=== PATIENT | female | born 1935 | race African-American/Black ===

== ENCOUNTER 2016-02-27 01:55 | Inpatient (IN) | payer MEDICARE, MEDICAID ==
[2016-02-27] MEDS ORDERED: Albuterol/Ipratropium Neb 3 ML NEB NEB ONE (01:59)
--- NOTE | 2016-02-27 02:07 | EDPRACDOC ---
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 THE NURSING STAFF THEY FOUND THE PATIENT UNCONSCIOUS WITH OXYGEN SATS IN THE 50'S. PT ALWAYS WEARS OXYGEN 1-2 LITERS NC. PT WAS BAGGED AND BECAME CONSCIOUS. UPON ARRIVAL PT STATES SHE SHE IS HAVING SUBSTERNAL CHEST PAIN. PT WITH EXTENSIVE MEDICAL HISTORY Chest Pain Location: Reports: Substernal Pain Radiation: Reports: None Symptoms Occur: Reports: Suddenly Cardiac Risk Factors: Reports: Hyperlipidemia, Hypertension, Diabetes PE Risk Factors: Reports: Immobilization Medications within 24 Hours: Reports: Aspirin Prehospital Care: Reports: O2, IV, EKG, Monitor Pain Came On: Reports: Suddenly Pain Status: Present Now Pain Description: Reports: Sharp, Stabbing Pain Severity: Moderate Pain Worsens With: Reports: Other (SWALLOWING) Pain Improves With: Reports: Nothing Associated Signs and Symptoms: Reports: SOB <Irais Goodson - Last Filed: 02/27/16 03:17> <Scottie Miller - Last Filed: 03/02/16 09:06> - General Information Chief Complaint: Chest Pain Stated Complaint: UNCONSCIOUS Time Seen by Provider: 02/27/16 01:56 Home Medications: Home Medications Acetaminophen [Tylenol 8 Hour/Tylenol Arthritis] 650 mg PO Q6 PRN 01/31/12 Budesonide [Pulmicort] 0.5 mg NEB BID 01/31/12 Docusate Sodium [Colace] 100 mg PO BID 01/31/12 Ergocalciferol (Vitamin D2) [Vitamin D2] 50,000 unit PO .MONTHLY ON THE 01/01 Isosorbide Mononitrate [Imdur] 60 mg PO DAILY 01/31/12 Multivitamins with Iron [Daily Multivitamin with Iron] 1 tab PO DAILY 01/31/12 Polyethylene Glycol 3350 [Miralax] 17 gm PO DAILY 01/31/12 Pravastatin Sodium 20 mg PO HS 01/31/12 Allopurinol 150 mg PO DAILY 06/20/12 Ipratropium/Albuterol Sulfate [Duoneb 0.5 mg-3 mg/3 ml Soln] 3 ml NEB Q4H PRN Omeprazole [Prilosec] 20 mg PO BID 06/20/12 Benzonatate [Tessalon] 100 mg PO TID PRN 06/26/12 Insulin Glargine,Hum.rec.anlog [Lantus] 15 units SQ QAM 06/26/12 Lorazepam [Ativan] 0.5 mg PO BID 06/26/12 Calcium Carbonate [Tums] 1 tab PO TID PRN 12/11/12 Potassium Chloride [Klor-Con 10] 10 meq PO DAILY 01/24/14 Primidone [Mysoline] 100 mg PO HS 01/24/14 Ropinirole HCl 0.5 mg PO HS 01/24/14 Sennosides [Senokot] 2 tab PO HS 01/24/14 Sucralfate [Carafate] 1 gm PO QID 01/24/14 Tramadol HCl [Ultram] 50 mg PO Q12H PRN 01/24/14 Albuterol Sulfate [Ventolin] 2.5 mg NEB Q6H PRN 07/06/14 Fluticasone Propionate [Flonase] 2 spray GILA HS 07/06/14 Gabapentin [Neurontin] 300 mg PO BID 07/06/14 HydrALAZINE (Cardiovascular) [Apresoline] 25 mg PO QID 07/06/14 Insulin Glargine,Hum.rec.anlog [Lantus] 10 unit SQ HS 07/06/14 Magnesium Hydroxide/Al Hydrox [Mylanta Liquid] 30 ml PO Q6H PRN 07/06/14 Nitroglycerin [Nitrostat] 0.4 mg SL [id number] PRN 07/06/14 Psyllium Seed [Metamucil] 1 tbsp PO QAM 07/06/14 Aspirin (Enteric Coated) [Ecotrin] 81 mg PO DAILY 11/21/15 Bisacodyl [Dulcolax] 10 mg IA DAILY PRN 11/21/15 Carvedilol [Coreg] 6.25 mg PO BID 11/21/15 Furosemide [Lasix] 80 mg PO BID 11/21/15 Hydrocodone Bit/Acetaminophen [[place] 7.5-325 Tablet] 1 tab PO TID 11/21/15 Levothyroxine [Synthroid, Levoxyl] 25 mcg PO DAILY 11/21/15 Nystatin 1 applic TOP Q12H PRN 11/21/15 Levofloxacin [Levaquin] 750 mg PO 02/27/16 Allergies/Adverse Reactions: Allergies Allergy/AdvReac Type Severity Reaction Status Date / Time codeine [Codeine] Allergy Unknown Verified 02/27/16 02:29 heparin,beef [Heparin,Beef] Allergy Unknown Verified 02/27/16 02:29 Penicillins Allergy Unknown Verified 02/27/16 02:29 Sulfa (Sulfonamide Allergy Unknown Verified 02/27/16 02:29 Antibiotics) [Sulfa(Sulfonamide Antibiotics)] Tetracyclines Allergy Unknown Verified 02/27/16 02:29 torsemide [From Demadex] Allergy Unknown Verified 02/27/16 02:29 ED Past Medical History - History Reviewed Yes Nurses notes reviewed and agree except as marked - Patient Medical History Neurological History: Reports: Cerebrovascular Accident (>10 years ago), Dementia (MILD VASCULAR DEMENTIA) Cardiac History: Reports: Hypertension, Congestive Heart Failure (Diastolic type. Normal EF 2012), Cardiac Catheterization (2012) Respiratory History: Reports: Asthma, COPD GI/ History: Reports: Renal Failure Musculoskeletal History: Reports: Arthritis, Gout, Osteoarthritis Psychological History: Reports: Depression Systemic History: Reports: Anemia, Diabetes (Type 2). Denies: Cancer Surgical History: Reports: Hysterectomy (Total abdominal), Cardiac Catheterization (2012), Tonsillectomy/Adnoidectomy, Other (Bilateral knee arthroscopy) - Family Medical History Reports: Hypertension (Daughter), Stroke (Daughter), Cardiac Disorders (Mother) - Social Medical History Smoking Status: Never smoker <Irais Goodson - Last Filed: 02/27/16 03:17> EDM Review of Systems - Review of Systems ROS Negative Except as Marked: Yes All systems reviewed and were negative except as marked <Irais Goodson - Last Filed: 02/27/16 03:17> - Physical Exam Constitutional: Alert Oriented to: Time, Person, Place Last recorded Vital Signs: Oxygen Pulse Oxygen Saturation O2 Device Oxygen Flow Rate Fraction of Inspired Oxygen ( FIO2) - HEENT Head: Normal ( normocephalic) Eye Exam: Normal (PERRL, EOMI, Sclera white) Oropharynx: Normal (Pharynx:Moist without exudate,Gums-no swelling) Nose: No Symptoms Reported (septum midline) Neck: Normal (FROM, trachea at midline) - Respiratory/Cardiovascular Respiratory: Normal - CTA (BBS clear to auscultation without adventitious sounds ) Cardiovascular: Normal (RRR without murmur, gallop or rub) - GI Auscultation: Normal (NABS) Palpation: Normal (Soft,No rebound or guarding, non distended) Tenderness: Non tender Erickson's Sign: Negative Rectal Exam: Deferred - Musculoskeletal Back: Normal (Non-Tender) Extremities: Normal (Normal tone, Pulses 2+ No cyanosis or edema, FROM) - Integumentary Skin: Normal, Warm, Dry Lymphatics: Normal (no adenopathy) - Neurologic Memory Impaired: Normal Motor Function: Normal (Normal tone, Pulses 2+ No cyanosis or edema, FROM) Cranial Nerve: Normal (CN II-X11 intact sensation, strength 5/5) Cerebellar: Normal Mood Description: Normal Perception: Normal <Irais Goodson - Last Filed: 02/27/16 03:17> - Physical Exam Last recorded Vital Signs: Last Vital Signs Temp 97.7 F 02/27/16 02:00 Pulse 58 L 02/27/16 02:00 Resp 20 02/27/16 02:04 BP 167/74 02/27/16 02:00 Pulse Ox 89 L 02/27/16 02:00 Oxygen Pulse Oxygen Saturation 89 O2 Device Nasal Cannula Oxygen Flow Rate 3 Fraction of Inspired Oxygen ( FIO2) <Scottie Miller - Last Filed: 03/02/16 09:06> ED Chest Pain Exam - Respiratory/Cardiovascular Respiratory: Tachypnea Cardiovascular/Chest: Bradycardia Radial Pulse: Normal Femoral Pulse: Other Pedal Pulse: Other Carotid Arteries: Normal Edema: 3+ (PITTING) Chest Palpation: Tender <Irais Goodson - Last Filed: 02/27/16 03:17> - Differential Diagnosis Angina, CHF, Pneumonia - Action Patient received Aspirin within last 24 hours?: Yes ASA given in the ED: No Patient received Beta Wagner within last 24hrs: No - Results All Results Reviewed and Normal except as Highlighted below: Yes 02/27/16 02:05 02/27/16 02:05 - EKG EKG #1 EKG Time: 02:00 -: Yes EKG interpreted by me Rate: bpm: 57 Mondamin: RAD Rhythm: NSR Block: RBBB Hypertrophy: None ST: Old, Ant, Infarct, Nonsp Comments: T WAVE INVERSION - NEW FROM JUNE 2014 <Irais Goodson W - Last Filed: 02/27/16 03:17> - Re-evaluation Re-evaluation 1 Re-evaluation Time: 03:26 HOSPITALIST CONCERNED THAT PATIENT MAY SOON NEED DIALYSIS AND RECOMMENDS TRANSFER TO CENTER CAPABLE OF THIS. Re-evaluation 2 Re-evaluation Time: 04:[address] RINCON, HOSPITALIST [facility], SHE REFUSES TRANSFER SHE DOES NOT BELIEVE THE PATIENT WILL NEED DIALYSIS. SHE TOLD ME TO TALK TO RENAL AT THEIR FACILITY AND IF THEY THINK SHE MAY NEED IT THEN TO CALL HER BACK. Re-evaluation 3 Re-evaluation Time: 04:39 SPOKE WITH NEPHROLOGY AT [facility] WHO AGREES THAT THE PATIENT DOES NOT NEED DIALYSIS AND RECOMMENDS STABILIZATION AT OUR FACILITY. - Results 03/01/16 08:31 03/01/16 08:31 WBC 3.7 xk/uL (3.8-10.8) L 02/27/16 02:05 RBC 3.86 xM/uL (4.20-5.40) L 02/27/16 02:05 Hgb 9.5 g/dL (12.0-16.0) L 02/27/16 02:05 Hct 31.6 % (36-47) L 02/27/16 02:05 MCV 82 fL (81-99) 02/27/16 02:05 MCH 24.7 pg (27-32) L 02/27/16 02:05 MCHC 30.1 g/dl (33-36) L 02/27/16 02:05 RDW 20.1 % (11.5-14.5) H 02/27/16 02:05 Plt Count 40 xk/uL (130-400) L* 02/27/16 02:05 MPV 9.1 fL (7.4-10.4) 02/27/16 02:05 Neut % (Auto) 75.7 % (45-76) 02/27/16 02:05 Lymph % (Auto) 14.6 % (17-44) L 02/27/16 02:05 [place] % (Auto) 7.1 % (3-10) 02/27/16 02:05 Eos % (Auto) 1.8 % (0-5) 02/27/16 02:05 Baso % (Auto) 0.8 % (0-2) 02/27/16 02:05 Absolute Neuts (auto) 2.78 xk/uL (1.7-8.2) 02/27/16 02:05 Absolute Lymphs (auto) 0.52 xk/uL (0.65-4.75) L 02/27/16 02:05 Platelet Estimate Large plts present (NORMAL) 02/27/16 02:05 RBC Morphology Norm 02/27/16 02:05 PT 11.9 SEC (9.2-11.2) H 02/27/16 02:05 INR 1.2 02/27/16 02:05 APTT 22.2 SEC (22-35) 02/27/16 02:05 Puncture Site Right radial 02/27/16 02:10 pH 7.320 pH UNITS (7.35-7.45) L 02/27/16 02:10 pCO2 41.0 mmHg (35-45) 02/27/16 02:10 pO2 49.0 mmHg (80-100) L* 02/27/16 02:10 HCO3 21.1 MMOL/L (22-26) L 02/27/16 02:10 Total CO2 22.4 MMOL/L (23-27) L 02/27/16 02:10 Base Excess -4.8 (+/- 2) L 02/27/16 02:10 FiO2 % 3l nc 02/27/16 02:10 Specimen Drawn By Whitr 02/27/16 02:10 Sodium 142 mEq/L (137-146) 02/27/16 02:05 Potassium 4.8 mEq/L (3.5-5.1) 02/27/16 02:05 Chloride 109 mEq/L (98-107) H 02/27/16 02:05 Carbon Dioxide 22 mMOL/L (22-33) 02/27/16 02:05 Anion Gap 16 mEq/L (8-16) 02/27/16 02:05 BUN 97 MG/DL (7-17) H 02/27/16 02:05 Creatinine 2.20 MG/DL (0.52-1.04) H 02/27/16 02:05 Estimated GFR (MDRD) 26 mL/min (>=60) L 02/27/16 02:05 Glucose 172 MG/DL (70-99) H 02/27/16 02:05 Calculated Osmolality 307 MOs/Kg (270-290) H 02/27/16 02:05 Lactic Acid 1.7 mEq/L (0.7-2.1) 02/27/16 02:05 Calcium 7.9 MG/DL (8.4-10.2) L 02/27/16 02:05 Corrected Calcium 9.1 MG/DL (8.4-10.2) 02/27/16 02:05 Total Bilirubin 0.4 MG/DL (0.2-1.3) 02/27/16 02:05 AST 48 IU/L (14-36) H 02/27/16 02:05 ALT 58 IU/L (9-52) H 02/27/16 02:05 Alkaline Phosphatase 153 IU/L (55-165) 02/27/16 02:05 Creatine Kinase 24 IU/L (30-134) L 02/27/16 02:05 Troponin I < 0.01 ng/mL (<.04) 02/27/16 02:05 Xul-Q-Khmzsqrpopk Pept 68483 pg/mL (0-1800) H 02/27/16 02:05 Total Protein 5.9 G/DL (6.3-8.2) L 02/27/16 02:05 Albumin 2.8 G/DL (3.5-5.0) L 02/27/16 02:05 Lab Results 02/27/16 02/27/16 02/27/16 02:10 02:05 02:05 WBC 3.7 L RBC 3.86 L Hgb 9.5 L Hct 31.6 L MCV 82 MCH 24.7 L MCHC 30.1 L RDW 20.1 H Plt Count 40 L* MPV 9.1 Neut % (Auto) 75.7 Lymph % (Auto) 14.6 L [place] % (Auto) 7.1 Eos % (Auto) 1.8 Baso % (Auto) 0.8 Absolute Neuts (auto) 2.78 Absolute Lymphs (auto) 0.52 L Platelet Estimate Large plts present RBC Morphology Norm PT 11.9 H INR 1.2 APTT 22.2 Puncture Site Right radial pH 7.320 L pCO2 41.0 pO2 49.0 L* HCO3 21.1 L Total CO2 22.4 L Base Excess -4.8 L FiO2 % 3l nc Specimen Drawn By Whitr Sodium Potassium Chloride Carbon Dioxide Anion Gap BUN Creatinine Estimated GFR (MDRD) Glucose Calculated Osmolality Lactic Acid Calcium Corrected Calcium Total Bilirubin AST ALT Alkaline Phosphatase Creatine Kinase Troponin I Bwx-Z-Fgbrlrypvia Pept Total Protein Albumin 02/27/16 02/27/16 02:05 02:05 WBC RBC Hgb Hct MCV MCH MCHC RDW Plt Count MPV Neut % (Auto) Lymph % (Auto) [place] % (Auto) Eos % (Auto) Baso % (Auto) Absolute Neuts (auto) Absolute Lymphs (auto) Platelet Estimate RBC Morphology PT INR APTT Puncture Site pH pCO2 pO2 HCO3 Total CO2 Base Excess FiO2 % Specimen Drawn By Sodium 142 Potassium 4.8 Chloride 109 H Carbon Dioxide 22 Anion Gap 16 BUN 97 H Creatinine 2.20 H Estimated GFR (MDRD) 26 L Glucose 172 H Calculated Osmolality 307 H Lactic Acid 1.7 Calcium 7.9 L Corrected Calcium 9.1 Total Bilirubin 0.4 AST 48 H ALT 58 H Alkaline Phosphatase 153 Creatine Kinase 24 L Troponin I < 0.01 Yjs-D-Cpufbezryrt Pept 18182 H Total Protein 5.9 L Albumin 2.8 L Laboratory Results - last 24 hr 02/27/16 02/27/16 02/27/16 02:05 02:05 02:05 WBC 3.7 L RBC 3.86 L Hgb 9.5 L Hct 31.6 L MCV 82 MCH 24.7 L MCHC 30.1 L RDW 20.1 H Plt Count 40 L* MPV 9.1 Neut % (Auto) 75.7 Lymph % (Auto) 14.6 L [place] % (Auto) 7.1 Eos % (Auto) 1.8 Baso % (Auto) 0.8 Absolute Neuts (auto) 2.78 Absolute Lymphs (auto) 0.52 L Platelet Estimate Large plts present RBC Morphology Norm PT INR APTT Puncture Site pH pCO2 pO2 HCO3 Total CO2 Base Excess FiO2 % Specimen Drawn By Sodium 142 Potassium 4.8 Chloride 109 H Carbon Dioxide 22 Anion Gap 16 BUN 97 H Creatinine 2.20 H Estimated GFR (MDRD) 26 L Glucose 172 H Calculated Osmolality 307 H Lactic Acid 1.7 Calcium 7.9 L Corrected Calcium 9.1 Total Bilirubin 0.4 AST 48 H ALT 58 H Alkaline Phosphatase 153 Creatine Kinase 24 L Troponin I < 0.01 Dkj-S-Szcdkzgmuua Pept 07717 H Total Protein 5.9 L Albumin 2.8 L 02/27/16 02/27/16 02:05 02:10 WBC RBC Hgb Hct MCV MCH MCHC RDW Plt Count MPV Neut % (Auto) Lymph % (Auto) [place] % (Auto) Eos % (Auto) Baso % (Auto) Absolute Neuts (auto) Absolute Lymphs (auto) Platelet Estimate RBC Morphology PT 11.9 H INR 1.2 APTT 22.2 Puncture Site Right radial pH 7.320 L pCO2 41.0 pO2 49.0 L* HCO3 21.1 L Total CO2 22.4 L Base Excess -4.8 L FiO2 % 3l nc Specimen Drawn By Whitr Sodium Potassium Chloride Carbon Dioxide Anion Gap BUN Creatinine Estimated GFR (MDRD) Glucose Calculated Osmolality Lactic Acid Calcium Corrected Calcium Total Bilirubin AST ALT Alkaline Phosphatase Creatine Kinase Troponin I Ojw-X-Zwuddhwfqfz Pept Total Protein Albumin Laboratory Results 02/27/16 02:05 02/27/16 02:05 <Scottie Miller - Last Filed: 03/02/16 09:06> ED Critical Care Note - Critical Care Note Total Time (mins): 30 Comments: Due to the presence of and / or the risk of deterioration, my attendance to this patient required critical care time, including assessment/reassessment, documentation, ordering and interpreting ancillary studies, discussion with ED staff and consultants,patient and family, and excludes time spent on separately billable procedures. <Scottie Miller - Last Filed: 03/02/16 09:06> - Departure Disposition: Admit IP To This Hospital Education/Counseling Given To: Patient Education/Counseling Given Regarding: Diagnosis, Treatment, Prognosis, Follow Up Decision to Admit Time: 03:17 Decision to admit date: 02/27/16 Decision to admit: from ED - Physician Consulted Hospitalist Time Called: 03:17 Provider Called: Inga Nam Time Postal Inspector Returned Call: 03:17 <Irais Goodson - Last Filed: 02/27/16 03:17> <Scottie Miller - Last Filed: 03/02/16 09:06> - Departure Condition: Stable Final Diagnosis: Heart failure Qualifiers: Heart failure type: unspecified heart failure type Heart failure chronicity: unspecified heart failure chronicity Qualified Code(s): I50.9 - Heart failure, unspecified
[2016-02-27 02:15] LABS: ALLEN'S TEST PASS; BEb -4.8 (+/- 2); TCO2 22.4 MMOL/L (23-27)
[2016-02-27 02:16] LABS: ABG Draw Site Right Radial
[2016-02-27] MEDS: METHYLPREDNISOLONE 125 MG/2 ML VIAL IM ONE ×2 (02:16→02:26)
[2016-02-27] MEDS ORDERED: METHYLPREDNISOLONE 125 MG/2 ML VIAL IV ONE (02:17)
[2016-02-27 02:21] LABS: AUTOMATED EOSINOPHIL 1.8 % (0-5)
[2016-02-27 02:22] LABS: AUTOMATED BASOPHIL 0.8 % (0-2); AUTOMATED LYMPH 14.6 % (17-44); AUTOMATED MONOCYTE 7.1 % (3-10); AUTOMATED NEUTROPHIL 75.7 % (45-76); MPV 9.1 fL (7.4-10.4)
[2016-02-27 02:28] LABS: BLOOD UREA NITROGEN 97 MG/DL (7-17); CALC CORRECTED 9.1 MG/DL (8.4-10.2); CALCIUM 7.9 MG/DL (8.4-10.2); CALCULATED OSMOLALITY 307 MOs/Kg (270-290); CHLORIDE 109 mEq/L (98-107); GLUCOSE 172 MG/DL (70-99); SODIUM LEVEL 142 mEq/L (137-146); TOTAL PROTEIN 5.9 G/DL (6.3-8.2)
[2016-02-27 02:35] LABS: PARTIAL THROMB. TIME 22.2 SEC (22-35); PT-INR 1.2
--- NOTE | 2016-02-27 02:48 | DIRPT ---
CLINICAL DATA: Acute onset of substernal chest pain. Found unconscious, with decreased O2 saturation. Initial encounter. EXAM: PORTABLE CHEST 1 VIEW COMPARISON: Chest radiograph performed 07/11/2014 FINDINGS: The lungs are well-aerated. Vascular congestion is noted. Mildly increased interstitial markings may reflect mild interstitial edema. There is no evidence of pleural effusion or pneumothorax. The cardiomediastinal silhouette is borderline enlarged. No acute osseous abnormalities are seen. IMPRESSION: Vascular congestion and borderline cardiomegaly. Mildly increased interstitial markings may reflect mild interstitial edema. Electronically Signed By: Black Chau M.D. On: 02/27/2016 02:46
[2016-02-27] MEDS ORDERED: NITROGLYCERINE 2 % OINTMENT PACK TOP ONE (02:50)
[2016-02-27] MEDS ORDERED: FUROSEMIDE 40 MG/4 ML VIAL IV ONE (02:50)
[2016-02-27 02:53] LABS: CPK TOTAL WITH POSSIBLE MB 24 IU/L (30-134)
[2016-02-27] MEDS ORDERED: Albuterol/Ipratropium Neb 3 ML NEB NEB PRN (05:26)
[2016-02-27] MEDS ORDERED: METOCLOPRAMIDE 10 MG/2 ML VIAL IV PRN (05:26)
[2016-02-27] MEDS ORDERED: DOCUSATE-SENNA CONCENTRATE TAB PO PRN (05:26)
[2016-02-27] MEDS ORDERED: BENZONATATE 100 MG PERLES PO PRN (05:26)
[2016-02-27] MEDS ORDERED: SODIUM CHLORIDE 0.9% 3 ML FLUSH FLUSH PRN (05:26)
[2016-02-27] MEDS ORDERED: SIMETHICONE 80 MG TAB PO PRN (05:26)
[2016-02-27] MEDS ORDERED: ACETAMINOPHEN 325 MG/TAB TABLET PO PRN (05:26)
[2016-02-27] MEDS ORDERED: ONDANSETRON HCL 4 MG/2 ML VIAL IV PRN (05:26)
[2016-02-27] MEDS ORDERED: ACETAMINOPHEN 650 MG SUPP PR PRN (05:26)
[2016-02-27] MEDS ORDERED: TEMAZEPAM 15 MG CAP PO PRN (05:26)
[2016-02-27] MEDS ORDERED: NITROGLYCERINE 0.4 MG TAB SL PRN ×2 (05:31→06:21)
--- NOTE | 2016-02-27 05:46 | HISTPHYS ---
- Chief Complaint AGONAL RESPIRATIONS - History of Present Illness Karrie Real is a 80 year old Afro-[place]ir[place] woman who resides at [facility]. She was found to be unconscious today with agonal respirations. EMS was called to the scene and administered bag-valve- mask assisted respirations and transported the patient to the ED. She was more alert upon arrival to the ED, but noticeably short of breath and coughing. She admitted to feeling tired for several days and having some chest congestion which she felt was a cold. Her chest x-ray is consistent with significant pulmonary edema. She has been followed by Dr. Bray at [facility] for immune thrombocytopenic purpura, and is noted to have mildly elevated liver enzymes. She also has significant uremia with a BUN of 97 and a creatinine of 2.2. I explained to her that she has multi-system disease and that we had discussed her case with nephrology at [facility]. They felt she was not a candidate for dialysis due to her multiple co-morbidities. She has agreed to be admitted for palliative care at this time. - Medical History Cardiac History: Reports: Hypertension, Congestive Heart Failure (Diastolic type. Normal EF 2014), Cardiac Catheterization (2012) Respiratory History: Reports: Asthma, COPD, Cough GI/ History: Reports: Renal Failure, Liver Failure Musculoskeletal History: Reports: Arthritis, Gout, Osteoarthritis Systemic History: Reports: Anemia (thrombocytopenia), Diabetes (Type 2), Hypothyroidism. Denies: Cancer Neurological History: Reports: Cerebrovascular Accident (>10 years ago), Dementia (MILD VASCULAR DEMENTIA) Psychological History: Reports: Depression - Surgical History Reports: Cholecystectomy, Hysterectomy (Total abdominal), Cardiac Catheterization (2012), Tonsillectomy/Adnoidectomy, Other (Bilateral knee arthroscopy, bone marrow aspiration) - Medictions/Allergies Allergies codeine [Codeine] Allergy (Verified 02/27/16 02:29) Unknown heparin,beef [Heparin,Beef] Allergy (Verified 02/27/16 02:29) Unknown Penicillins Allergy (Verified 02/27/16 02:29) Unknown Sulfa (Sulfonamide Antibiotics) [Sulfa(Sulfonamide Antibiotics)] Allergy ( Verified 02/27/16 02:29) Unknown Tetracyclines Allergy (Verified 02/27/16 02:29) Unknown torsemide [From Demadex] Allergy (Verified 02/27/16 02:29) Unknown Current Medication List: Reviewed Home Medications Acetaminophen [Tylenol 8 Hour/Tylenol Arthritis] 650 mg PO Q6 PRN 01/31/12 Budesonide [Pulmicort] 0.5 mg NEB BID 01/31/12 Dextran 70/Hypromellose/Pf [Artificial Tears Drops (1.0%)] 1 drop OU QID Docusate Sodium [Colace] 100 mg PO BID 01/31/12 Ergocalciferol (Vitamin D2) [Vitamin D2] 50,000 unit PO .MONTHLY ON THE 01/01 Gabapentin [Neurontin] 300 mg PO BID 01/31/12 Isosorbide Mononitrate [Imdur] 60 mg PO DAILY 01/31/12 Multivitamins with Iron [Daily Multivitamin with Iron] 1 tab PO DAILY 01/31/12 Polyethylene Glycol 3350 [Miralax] 17 gm PO DAILY 01/31/12 Pravastatin Sodium 20 mg PO HS 01/31/12 Allopurinol 150 mg PO DAILY 06/20/12 Ipratropium/Albuterol Sulfate [Duoneb 0.5 mg-3 mg/3 ml Soln] 3 ml NEB Q4H PRN Omeprazole [Prilosec] 20 mg PO BID 06/20/12 Benzonatate [Tessalon] 100 mg PO TID PRN 06/26/12 Insulin Glargine,Hum.rec.anlog [Lantus] 15 units SQ QAM 06/26/12 Lorazepam [Ativan] 0.5 mg PO BID 06/26/12 Calcium Carbonate [Tums] 1 tab PO TID PRN 12/11/12 Metolazone [Zaroxolyn] 2.5 mg PO .WEEKLY ON Monday01/24/14 Potassium Chloride [Klor-Con 10] 10 meq PO DAILY 01/24/14 Primidone [Mysoline] 100 mg PO HS 01/24/14 Ropinirole HCl 0.5 mg PO HS 01/24/14 Sennosides [Senokot] 2 tab PO HS 01/24/14 Sucralfate [Carafate] 1 gm PO QID 01/24/14 Tramadol HCl [Ultram] 50 mg PO Q12H PRN 01/24/14 Albuterol Sulfate [Ventolin] 2.5 mg NEB Q6H PRN 07/06/14 Fluticasone Propionate [Flonase] 2 spray GILA HS 07/06/14 Gabapentin [Neurontin] 600 mg PO HS 07/06/14 Glycerin/Witch Jessenia Chiawuli Tak [Tucks Medicated Pads] 1 each OK DAILY PRN 07/06/14 Guaifenesin [Robitussin] 10 ml PO Q4H PRN 07/06/14 HydrALAZINE (Cardiovascular) [Apresoline] 25 mg PO QID 07/06/14 Insulin Glargine,Hum.rec.anlog [Lantus] 10 unit SQ HS 07/06/14 Magnesium Hydroxide/Al Hydrox [Mylanta Liquid] 30 ml PO Q6H PRN 07/06/14 Nitroglycerin [Nitrostat] 0.4 mg SL [id number] PRN 07/06/14 Psyllium Seed [Metamucil] 1 tbsp PO QA 07/06/14 Aspirin (Enteric Coated) [Ecotrin] 81 mg PO DAILY 11/21/15 Bisacodyl [Dulcolax] 10 mg OK DAILY PRN 11/21/15 Carvedilol [Coreg] 6.25 mg PO BID 11/21/15 Cephalexin Monohydrate [Keflex] 500 mg PO Q8H #30 cap 11/21/15 Furosemide [Lasix] 100 mg PO TID 11/21/15 Hydrocodone Bit/Acetaminophen [[place] 7.5-325 Tablet] 1 tab PO TID 11/21/15 Levothyroxine [Synthroid, Levoxyl] 25 mcg PO DAILY 11/21/15 Mineral Oil [Enema] 133 ml OK DAILY PRN 11/21/15 Nystatin 1 applic TOP Q12H PRN 11/21/15 - Family History Reports: Hypertension (Daughter), Stroke (Daughter), Cardiac Disorders (Mother) - Social History Travel Outside of [place] in the Last 3 Months?: No Lives: in Snf/SNF Smoking Status: Never smoker Social History: Denies: Alcohol Use (former), Substance Use Disorder - Review of Systems Constitutional: Fatigue, Weakness. negative: Chills, Fever Eyes: No Symptoms Reported Ears: No Symptoms Reported Nose: No Symptoms Reported Mouth: Dry Mouth, Poor Dentition Throat/Neck: No Symptoms Reported, Snoring. negative: Hoarseness, Thyroid enlargement Respiratory: Brassy Cough, Cough, Shortness of Breath Cardiovascular: Edema, Orthopnea. negative: Chest Pain, Cyanosis Gastrointestinal: Nausea, Constipation, Heartburn, Appetite Changes (decreased) . negative: Vomiting, Abdominal Pain Genitourinary: Postmenopause. negative: Frequency, Urgency to urinate Neurological: Dizziness, Gait Difficulty, Headache, Weakness, Memory Changes Musculoskeletal:: Osteoarthritis, Weakness, Joint Pain, Swelling (legs) Integumentary: No Symptoms Reported Allergic/Immunologic: No Symptoms Reported Hematologic: No Symptoms Reported Endocrine: Diabetes, Hypothyroidism Psychiatric: Depression - Physical Exam Vital Signs: Initial Vitals Temperature 97.7 F 02/27/16 02:00 Pulse Rate 58 L 02/27/16 02:00 Respiratory Rate 20 02/27/16 02:00 Blood Pressure 167/74 02/27/16 02:00 Pulse Oxygen Saturation 89 L 02/27/16 02:00 Constitutional: Alert, Distress, Somnolent Oriented to: Person, Place - HEENT Head: Normal, Other (face with scabs on it, dry scaley patches) Eye: Normal (PERRL: EOMI) Oropharynx: Membranes Dry Tympanic Membrane: Dull ENT EAC: Cerumen Nose: negative: Bleeding, Congestion, Discharge, Deformity Respiratory: Rales, Rhonchi, Tachypnea, Wheezes Cardiovascular: Bradycardia (regular rhythm and rate), Systolic murmur (3/6 murmur ULSB, LLSB), Gallop/S3 - GI Auscultation: Normal. negative: Bruit Palpation: Normal (soft, nondistended, no mass, obese), Fluid Wave. negative: Enlarged liver, Enlarged spleen Tenderness: Non tender. negative: Guarding, Rebound, Rigidity Erickson's Sign: Negative Rectal Exam: Deferred - Musculoskeletal Back: Normal Extremities: Edema (3+ bilateral to knees), Pedal Pulse (diminished), Radial Pulse (normal). negative: Clubbing, Cyanosis Spine: normal alignment, normal inspection - Integumentary Skin: Warm, Dry Lymphatics: Normal - Neurologic Memory Impaired: Short-term Motor Function: Normal Cranial Nerve: Normal Cerebellar: Normal Mood Description: Normal Thought: Coherent Perception: Normal - Focused CV Perfusion Exam Vital Signs: Last Vital Signs Temp 97.7 F 02/27/16 02:00 Pulse 58 L 02/27/16 04:58 Resp 22 02/27/16 04:58 BP 171/72 02/27/16 04:58 Pulse Ox 97 02/27/16 04:58 - Lab Results Laboratory Tests 02/27/16 02/27/16 02/27/16 02:05 02:05 02:05 WBC 3.7 L Hgb 9.5 L Hct 31.6 L MCV 82 RDW 20.1 H Plt Count 40 L* Neut % (Auto) 75.7 Lymph % (Auto) 14.6 L [place] % (Auto) 7.1 PT INR APTT pH pCO2 pO2 HCO3 Total CO2 Base Excess FiO2 % Sodium 142 Potassium 4.8 Chloride 109 H Carbon Dioxide 22 Anion Gap 16 BUN 97 H Creatinine 2.20 H Estimated GFR (MDRD) 26 L Glucose 172 H Calculated Osmolality 307 H Lactic Acid 1.7 Corrected Calcium 9.1 Total Bilirubin 0.4 AST 48 H ALT 58 H Alkaline Phosphatase 153 Creatine Kinase 24 L Troponin I < 0.01 [id number] Pept 47268 H Total Protein 5.9 L Albumin 2.8 L 02/27/16 02/27/16 02/27/16 02:05 02:10 05:08 WBC Hgb Hct MCV RDW Plt Count Neut % (Auto) Lymph % (Auto) [place] % (Auto) PT 11.9 H INR 1.2 APTT 22.2 pH 7.320 L pCO2 41.0 pO2 49.0 L* HCO3 21.1 L Total CO2 22.4 L Base Excess -4.8 L FiO2 % 3l nc Sodium Potassium Chloride Carbon Dioxide Anion Gap BUN Creatinine Estimated GFR (MDRD) Glucose Calculated Osmolality Lactic Acid Corrected Calcium Total Bilirubin AST ALT Alkaline Phosphatase Creatine Kinase 21 L Troponin I 0.02 [id number] Pept Total Protein Albumin - Diagnostic Findings CXR: IMPRESSION: Vascular congestion and borderline cardiomegaly. Mildly increased interstitial markings may reflect mild interstitial edema. Electronically Signed By: Black Chau M.D. On: 02/27/2016 02:46 EKG: sinus rhythm, 57 bpm, old anterior & inferior infarcts, RBBB, new nonspecific T-wave inversion lateral leads - Assessment (1) Acute on chronic diastolic (congestive) heart failure I50.33 - ACUTE ON CHRONIC DIASTOLIC (CONGESTIVE) HEART FAILURE Acute Present on Admission: Yes Admit: we will attempt gentle diuresis, hold all nephrotoxic medications and follow renal function closely. I have advised the patient that she may get better or worse. She has multiple organ systems affected and palliatve care is the best we can offer her. Enhance cardiac performance as much as possible without compromising renal function. Continue low dose beta-kamron, low dose hydralazine and nitrates. Stop JUAN/ARB. Hold all non-essential medications. (2) Acute on chronic renal failure N17.9 - ACUTE KIDNEY FAILURE, UNSPECIFIED; N18.9 - CHRONIC KIDNEY DISEASE, UNSPECIFIED Acute Present on Admission: Yes Attempt gentle diuresis, hold all nephrotoxic medications and follow renal function closely. I have advised the patient that she may get better or worse. She has multiple organ systems affected and palliatve care is the best we can offer her. (3) Acute respiratory failure J96.00 - ACUTE RESPIRATORY FAILURE, UNSP W HYPOXIA OR HYPERCAPNIA Acute Qualifiers: Respiratory failure complication: hypoxia Qualified Code(s): J96.01 - Acute respiratory failure with hypoxia Currently tolerating venti-mask at 50% FiO2. Try to maintain O2 sat>92%. Check a.m. chest x-ray, wean O2 as tolerated. (4) Elevated liver enzymes R74.8 - ABNORMAL LEVELS OF OTHER SERUM ENZYMES Acute Present on Admission: Yes Follow intemittently, will be a reflection of overall well-being. Hold any medications that are hepatotoxic. Continue low dose beta-kamron, low dose hydralazine and nitrates. Stop JUAN/ARB. Hold all non-essential medications. (5) Thrombocytopenia D69.6 - THROMBOCYTOPENIA, UNSPECIFIED Acute Present on Admission: Yes Avoid Lovenox dosing or aspirin and use SCDs for DVT prophylaxis. (6) COPD (chronic obstructive pulmonary disease) J44.9 - CHRONIC OBSTRUCTIVE PULMONARY DISEASE, UNSPECIFIED Chronic Present on Admission: Yes Qualifiers: COPD type: chronic bronchitis Continue with intensive nebulizer therapy. She does not appear to have a COPD exacerbation at this time. But she very well may have obesity hypoventilation syndrome. Will use nebulizer treatments and avoid IV steroids, use inhaled steroids if necessary. (7) Diabetes mellitus type 2 in obese E11.9 - TYPE 2 DIABETES MELLITUS WITHOUT COMPLICATIONS; E66.9 - OBESITY, UNSPECIFIED Chronic Present on Admission: Yes Treat with ADA as well as cardiac diet. Use sliding scale insulin coverage. Continue with insulin dosing from home. (8) Obstructive sleep apnea G47.33 - OBSTRUCTIVE SLEEP APNEA (ADULT) (PEDIATRIC) Chronic Present on Admission: Yes May have been the cause of her apneic episode. Case Care Discussed with: Patient, Family, Nursing Staff Critical Care: Yes Couseling Time (>50% in counseling/coordination): Yes Code: 291
[2016-02-27] MEDS ORDERED: Pharmacy Order Set Alert SCH (06:00)
[2016-02-27] MEDS ORDERED: [UNRECOGNIZED DRUG - OTHER] XX SCH (06:00)
[2016-02-27] MEDS ORDERED: hydrALAZINE 10 MG TAB PO SCH ×2 (06:00→12:00)
[2016-02-27] MEDS ORDERED: GLUCAGON 1 MG VIAL SQ PRN (06:20)
[2016-02-27] MEDS ORDERED: DEXTROSE 25 GM/50 ML PFS IV PRN (06:20)
[2016-02-27] MEDS ORDERED: GLUCOSE (ORAL GEL) 15 GM TUBE PO PRN (06:20)
[2016-02-27] MEDS ORDERED: GLARGINE INSULIN (LANTUS) 100 UNITS/ML PEN SQ SCH (07:00)
[2016-02-27] MEDS: Albuterol/Ipratropium Neb 3 ML NEB NEB SCH ×3 (08:14→19:36)
[2016-02-27] MEDS: REGULAR INSULIN 100 UNITS/ML - 3 ML VIAL SQ SCH ×5 (09:33→21:34)
[2016-02-27] MEDS: SODIUM CHLORIDE 0.9% 3 ML FLUSH FLUSH SCH ×2 (09:33→16:30)
[2016-02-27] MEDS: POTASSIUM CHLORIDE 20 MEQ TAB PO SCH (09:34)
[2016-02-27] MEDS: ISOSORBIDE DINITRATE 10 MG TAB PO SCH ×3 (09:34→21:32)
[2016-02-27] MEDS: LEVOTHYROXINE 25 MCG (0.025 MG) TAB PO SCH (09:34)
[2016-02-27] MEDS: CARVEDILOL 6.25 MG TAB PO SCH ×2 (09:34→21:32)
--- NOTE | 2016-02-27 10:54 | GENMEDPROG ---
Subjective Note: Patient in bed responsive follows commands. Breathing better, still dyspneic coughing producing fair amount of foamy sputum no hemoptysis. Denies any pains. Notes Reviewed: Yes Events from last night noted and discussed with Clinical Staff Current Medication List: Reviewed Currently: Reports: Cough, Wheezing, GOMES, SOB, Sputum, Reflux Sx DVT Prophylaxis: Yes - Physical Examination Vital Signs and I&O: Last Vital Signs Temp 97.6 F 02/27/16 06:44 Pulse 61 02/27/16 09:45 Resp 20 02/27/16 06:44 BP 144/52 L 02/27/16 06:44 Pulse Ox 98 02/27/16 08:09 Oxygen Pulse Oxygen Saturation 98 O2 Device Nasal Cannula Oxygen Flow Rate 3 Fraction of Inspired Oxygen ( 40 FIO2) Intake & Output 02/24/16 02/25/16 02/26/16 02/27/16 23:59 23:59 23:59 23:59 Intake Total 240 Output Total 1000 Balance -760 Patient's weight 150.729 kg General: Alert, Oriented x3, Cooperative, Mild distress HEENT: Normal, PERRLA, EOMI, Anicteric Sclera Neck: Non-tender, Limited range of motion, JVD Lymphatics: Normal Respiratory: Rales, Rhonchi, Tachypnea, Wheezes Cardiovascular: Regular rate, Normal S1, Normal S2, Murmurs GI: Normal bowel sounds, Soft, Non tender, No hepatospenomegaly, No masses, Obese Extremities/Musculoskeletal: Edema, Cyanosis, DJD Skin: Warm,Dry and Intact, No rashes, No breakdown Neurological: Normal speech, Normal tone, Cranial nerves 3-12 NL Psych/Mental Status: Anxious Allergies codeine [Codeine] Allergy (Verified 02/27/16 02:29) Unknown heparin,beef [Heparin,Beef] Allergy (Verified 02/27/16 02:29) Unknown Penicillins Allergy (Verified 02/27/16 02:29) Unknown Sulfa (Sulfonamide Antibiotics) [Sulfa(Sulfonamide Antibiotics)] Allergy ( Verified 02/27/16 02:29) Unknown Tetracyclines Allergy (Verified 02/27/16 02:29) Unknown torsemide [From Demadex] Allergy (Verified 02/27/16 02:29) Unknown 02/27/16 02:05 02/27/16 02:05 Last Vital Signs Temp 97.6 F 02/27/16 06:44 Pulse 61 02/27/16 09:45 Resp 20 02/27/16 06:44 BP 144/52 L 02/27/16 06:44 Pulse Ox 98 02/27/16 08:09 Patient Name: GLADYS JAMES LOC: ED : 1935 AGE: 80 Order Date:02/27/16 Date of Service:09/05 Report # [id number] Ord Physician: Irais Goodson [facility]- Exam # [id number] Emergency Physician: Scottie Miller DO Exam(s): [id number] RAD/DG CHEST PORTABLE CLINICAL DATA: Acute onset of substernal chest pain. Found unconscious, with decreased O2 saturation. Initial encounter. EXAM: PORTABLE CHEST 1 VIEW COMPARISON: Chest radiograph performed 07/11/2014 FINDINGS: The lungs are well-aerated. Vascular congestion is noted. Mildly increased interstitial markings may reflect mild interstitial edema. There is no evidence of pleural effusion or pneumothorax. The cardiomediastinal silhouette is borderline enlarged. No acute osseous abnormalities are seen. IMPRESSION: Vascular congestion and borderline cardiomegaly. Mildly increased interstitial markings may reflect mild interstitial edema. Electronically Signed By: Black Chau M.D. - Assessment (1) Acute respiratory failure with hypoxia Acute J96.01 - ACUTE RESPIRATORY FAILURE WITH HYPOXIA Comment/Plan: Continue O2 nebs and pulmonary toilet. Monitor pulmonary status. Repeat chest x-ray and ABG in the morning (2) Acute on chronic diastolic (congestive) heart failure Acute I50.33 - ACUTE ON CHRONIC DIASTOLIC (CONGESTIVE) HEART FAILURE Comment /Plan: Continue IV diuretic at higher dose. Monitor weight and fluid balance. (3) Acute on chronic renal failure Acute N17.9 - ACUTE KIDNEY FAILURE, UNSPECIFIED; N18.9 - CHRONIC KIDNEY DISEASE, UNSPECIFIED Comment/Plan: Avoid any nephrotoxins hold Marco Antonio and ARB. Maintain hydration perfusion. Monitor daily BMP. (4) Thrombocytopenia Acute D69.6 - THROMBOCYTOPENIA, UNSPECIFIED Comment/Plan: Monitor counts. No spontaneous bleeding (5) Anemia Acute D64.9 - ANEMIA, UNSPECIFIED Qualifiers: Anemia type: unspecified type Qualified Code(s): D64.9 - Anemia, unspecified Comment/Plan: Monitor counts overall stable. (6) COPD (chronic obstructive pulmonary disease) Chronic J44.9 - CHRONIC OBSTRUCTIVE PULMONARY DISEASE, UNSPECIFIED Qualifiers: COPD type: chronic bronchitis Comment/Plan: Continue nebulized bronchodilators and mucolytics. Continue pulmonary toilet. (7) Dementia Chronic F03.90 - UNSPECIFIED DEMENTIA WITHOUT BEHAVIORAL DISTURBANCE Qualifiers: Dementia behavioral disturbance: without behavioral disturbance Qualified Code(s): F03.90 - Unspecified dementia without behavioral disturbance Comment/Plan: Continue supportive care (8) Diabetes mellitus type 2 in obese Chronic E11.9 - TYPE 2 DIABETES MELLITUS WITHOUT COMPLICATIONS; E66.9 - OBESITY, UNSPECIFIED Comment/Plan: Continue ADA diet Lantus and sliding scale regular insulin. (9) Obstructive sleep apnea Chronic G47.33 - OBSTRUCTIVE SLEEP APNEA (ADULT) (PEDIATRIC) Comment/Plan: Monitor pulmonary status Case Care Discussed with: Patient, Nursing Staff, Respiratory Therapy, Political Researcher Education/Counseling Given To: Patient Education/Counseling Given Regarding: Diagnosis, Treatment, Prognosis, Follow Up Total Time: 60 min , Critical Care: Yes Code: 291
[2016-02-27] MEDS: hydrALAZINE 25 MG TAB PO SCH ×3 (11:48→21:32)
[2016-02-27] MEDS ORDERED: FUROSEMIDE 40 MG/4 ML VIAL IV SCH ×2 (12:00→14:00)
[2016-02-27] MEDS ORDERED: Vaccine Screening Complete SCH (12:00)
[2016-02-27] MEDS: FUROSEMIDE 40 MG/4 ML VIAL IV SCH ×2 (12:58→21:33)
[2016-02-27] MEDS: MORPHINE 2 MG/ML INJECTION IV PRN ×3 (13:47→21:47)
[2016-02-27] MEDS: GLARGINE INSULIN (LANTUS) 100 UNITS/ML PEN SQ SCH (21:32)
[2016-02-28] MEDS: Albuterol/Ipratropium Neb 3 ML NEB NEB SCH ×4 (02:40→19:39)
[2016-02-28 03:37] LABS: AUTOMATED BASOPHIL 0.7 % (0-2)
[2016-02-28 03:39] LABS: AUTOMATED EOSINOPHIL 0.9 % (0-5); AUTOMATED MONOCYTE 12.2 % (3-10); AUTOMATED NEUTROPHIL 67.2 % (45-76); MPV 9.5 fL (7.4-10.4)
[2016-02-28 03:46] LABS: BLOOD UREA NITROGEN 99 MG/DL (7-17); CALC CORRECTED 9.4 MG/DL (8.4-10.2); CALCULATED OSMOLALITY 306 MOs/Kg (270-290); CHLORIDE 109 mEq/L (98-107); GLUCOSE 130 MG/DL (70-99); SODIUM LEVEL 142 mEq/L (137-146); TOTAL PROTEIN 5.4 G/DL (6.3-8.2)
[2016-02-28 05:17] VITALS: BMI 54.3
[2016-02-28 05:25] LABS: ALLEN'S TEST PASS; BEb -2.5 (+/- 2); TCO2 25.7 MMOL/L (23-27)
[2016-02-28 05:27] LABS: ABG Draw Site Right Brachial
[2016-02-28] MEDS: FUROSEMIDE 40 MG/4 ML VIAL IV SCH ×3 (05:45→21:28)
[2016-02-28] MEDS: SODIUM CHLORIDE 0.9% 3 ML FLUSH FLUSH SCH ×2 (05:46→15:49)
[2016-02-28] MEDS: ISOSORBIDE DINITRATE 10 MG TAB PO SCH ×3 (05:46→21:26)
[2016-02-28] MEDS: MORPHINE 2 MG/ML INJECTION IV PRN ×2 (05:50→11:45)
[2016-02-28] MEDS: REGULAR INSULIN 100 UNITS/ML - 3 ML VIAL SQ SCH ×4 (06:27→21:29)
[2016-02-28] MEDS: POTASSIUM CHLORIDE 20 MEQ TAB PO SCH (08:34)
[2016-02-28] MEDS: LEVOTHYROXINE 25 MCG (0.025 MG) TAB PO SCH (08:34)
[2016-02-28] MEDS: CARVEDILOL 6.25 MG TAB PO SCH ×2 (08:34→21:27)
[2016-02-28] MEDS: hydrALAZINE 25 MG TAB PO SCH ×4 (08:35→21:26)
[2016-02-28] MEDS ORDERED: LORAZEPAM 0.5 MG TAB PO PRN (09:39)
[2016-02-28] MEDS: HYDROCODONE 5 MG/ACETAMIN 325 MG TAB PO PRN ×2 (09:55→21:25)
--- NOTE | 2016-02-28 10:10 | DIRPT ---
CLINICAL DATA: Respiratory distress. EXAM: PORTABLE CHEST 1 VIEW COMPARISON: 02/27/2016 FINDINGS: The cardiac silhouette is stably enlarged. Mediastinal contours appear intact. There is no evidence of focal airspace consolidation, pleural effusion or pneumothorax. Lung volumes are low with increased interstitial markings. Osseous structures are without acute abnormality. Soft tissues are grossly normal. IMPRESSION: Stable enlargement of the cardiac silhouette. Increased interstitial markings which may be seen with pulmonary vascular congestion. Electronically Signed By: Jose R Thayer M.D. On: 02/28/2016 10:08
--- NOTE | 2016-02-28 10:14 | GENMEDPROG ---
Chief Complaint: Shortness of breath, CHF exacerbation Subjective Note: She has no acute complaints, other than that her bottom is hurting. Seems like she is not on her home chronic pain medications. So feels that her breathing is perhaps slightly better. Notes Reviewed: Yes Events from last night noted and discussed with Clinical Staff Current Medication List: Reviewed Currently: Reports: Cough, Wheezing, GOMES, SOB, Sputum, Reflux Sx DVT Prophylaxis: Yes - Physical Examination Vital Signs and I&O: Last Vital Signs Temp 97.5 F 02/28/16 08:05 Pulse 61 02/28/16 08:05 Resp 13 02/28/16 08:05 BP 156/59 L 02/28/16 08:05 Pulse Ox 92 02/28/16 08:05 Oxygen Pulse Oxygen Saturation 92 O2 Device Nasal Cannula Oxygen Flow Rate 2 Fraction of Inspired Oxygen ( 40 FIO2) Intake & Output 02/26/16 02/27/16 02/28/16 02/29/16 06:59 06:59 06:59 06:59 Intake Total 900 Output Total 3000 Balance -2100 Patient's weight 150.729 kg 152.815 kg General: Alert, Oriented x3, Cooperative, Mild distress HEENT: Normal, PERRLA, EOMI, Anicteric Sclera Neck: Non-tender, Limited range of motion, JVD Lymphatics: Normal Respiratory: Rales, Rhonchi, Tachypnea, Wheezes Cardiovascular: Regular rate, Normal S1, Normal S2, Murmurs GI: Normal bowel sounds, Soft, Non tender, No hepatospenomegaly, No masses, Obese Extremities/Musculoskeletal: Edema, Cyanosis, DJD Skin: Warm,Dry and Intact, No rashes, No breakdown Neurological: Normal speech, Normal tone, Cranial nerves 3-12 NL Psych/Mental Status: Anxious Lab/DI/Studies Reviewed: Laboratory Tests 02/27/16 02/28/16 02/28/16 02:05 02:45 02:45 WBC 5.6 Hgb 8.8 L Plt Count 41 L* pH pCO2 pO2 Potassium 4.9 BUN 97 H 99 H Creatinine 2.20 H 2.20 H 02/28/16 05:19 WBC Hgb Plt Count pH 7.310 L pCO2 48.0 H pO2 65.0 L Potassium BUN Creatinine - Assessment (1) Acute on chronic diastolic (congestive) heart failure Acute I50.33 - ACUTE ON CHRONIC DIASTOLIC (CONGESTIVE) HEART FAILURE Comment /Plan: Continue IV diuretic , monitor weight fluid balance. Keep a close eye on daily electrolytes. Continue low-dose beta-kamron, low-dose hydralazine and nitrates. Have had to discontinue a/Arb. (2) Acute respiratory failure with hypoxia Acute J96.01 - ACUTE RESPIRATORY FAILURE WITH HYPOXIA Comment/Plan: Continue O2 nebs and pulmonary toilet. Monitor pulmonary status. Repeat chest x-ray and ABG in the morning (3) Anemia Acute D64.9 - ANEMIA, UNSPECIFIED Qualifiers: Anemia type: unspecified type Qualified Code(s): D64.9 - Anemia, unspecified Comment/Plan: Monitor counts overall stable. (4) Elevated liver enzymes Acute R74.8 - ABNORMAL LEVELS OF OTHER SERUM ENZYMES Comment/Plan: Follow intemittently, will be a reflection of overall well-being. Hold any medications that are hepatotoxic. Continue low dose beta-kamron, low dose hydralazine and nitrates. Stop MARCO ANTONIO/ARB. Hold all non-essential medications. (5) Heart failure Acute I50.9 - HEART FAILURE, UNSPECIFIED Qualifiers: Heart failure type: unspecified heart failure type Heart failure chronicity : unspecified heart failure chronicity Qualified Code(s): I50.9 - Heart failure, unspecified (6) Acute on chronic renal failure Acute N17.9 - ACUTE KIDNEY FAILURE, UNSPECIFIED; N18.9 - CHRONIC KIDNEY DISEASE, UNSPECIFIED Comment/Plan: Avoid any nephrotoxins hold Marco Antonio and ARB. Maintain hydration perfusion. Monitor daily BMP. - Plan Overall her prognosis is very poor as her heart failure has affected multiple organ systems. She is also morbidly obese. Her poor prognosis was explained to her at the time of admission to the hospital. She understands that the catheter can provider is purely palliative at this point. She is a do not resuscitate.
[2016-02-28] MEDS: GLARGINE INSULIN (LANTUS) 100 UNITS/ML PEN SQ SCH (21:29)
[2016-02-29] MEDS: Albuterol/Ipratropium Neb 3 ML NEB NEB SCH ×4 (01:45→19:34)
[2016-02-29 04:48] LABS: MPV 9.1 fL (7.4-10.4)
[2016-02-29 04:57] LABS: BLOOD UREA NITROGEN 99 MG/DL (7-17); CALCIUM 7.5 MG/DL (8.4-10.2); CALCULATED OSMOLALITY 303 MOs/Kg (270-290); CHLORIDE 107 mEq/L (98-107); GLUCOSE 112 MG/DL (70-99); SODIUM LEVEL 141 mEq/L (137-146)
[2016-02-29] MEDS: FUROSEMIDE 40 MG/4 ML VIAL IV SCH ×3 (06:21→21:09)
[2016-02-29] MEDS: ISOSORBIDE DINITRATE 10 MG TAB PO SCH ×3 (06:21→21:08)
[2016-02-29] MEDS: HYDROCODONE 5 MG/ACETAMIN 325 MG TAB PO PRN ×2 (06:21→21:07)
[2016-02-29] MEDS: REGULAR INSULIN 100 UNITS/ML - 3 ML VIAL SQ SCH ×4 (06:22→21:12)
[2016-02-29] MEDS: SODIUM CHLORIDE 0.9% 3 ML FLUSH FLUSH SCH ×2 (06:22→17:03)
[2016-02-29] MEDS: LEVOTHYROXINE 25 MCG (0.025 MG) TAB PO SCH (08:03)
[2016-02-29] MEDS: CARVEDILOL 6.25 MG TAB PO SCH ×2 (08:03→21:09)
[2016-02-29] MEDS: hydrALAZINE 25 MG TAB PO SCH ×4 (08:03→21:08)
--- NOTE | 2016-02-29 10:01 | GENMEDPROG ---
Chief Complaint: Acute CHF, fluid overload Subjective Note: Complaining of abdominal discomfort, feels constipated. Feels like her breathing is little better than yesterday. Notes Reviewed: Yes Events from last night noted and discussed with Clinical Staff Current Medication List: Reviewed Currently: Reports: Cough, Wheezing, GOMES, SOB, Sputum, Reflux Sx DVT Prophylaxis: Yes - Physical Examination Vital Signs and I&O: Last Vital Signs Temp 97.6 F 02/29/16 09:01 Pulse 56 L 02/29/16 09:01 Resp 18 02/29/16 09:01 BP 134/59 L 02/29/16 09:01 Pulse Ox 87 L 02/29/16 09:01 Oxygen Pulse Oxygen Saturation 87 O2 Device Nasal Cannula Oxygen Flow Rate 2 Fraction of Inspired Oxygen ( 40 FIO2) Intake & Output 02/27/16 02/28/16 02/29/16 03/01/16 06:59 06:59 06:59 06:59 Intake Total 900 600 Output Total 3000 3850 Balance -2100 -3250 Patient's weight 150.729 kg 152.815 kg 152.577 kg General: Alert, Oriented x3, Cooperative, Mild distress HEENT: Normal, PERRLA, EOMI, Anicteric Sclera Neck: Non-tender, Limited range of motion, JVD Lymphatics: Normal Respiratory: Rales, Rhonchi, Tachypnea, Wheezes Cardiovascular: Regular rate, Normal S1, Normal S2, Murmurs GI: Normal bowel sounds, Soft, Non tender, No hepatospenomegaly, No masses, Obese Extremities/Musculoskeletal: Edema, Cyanosis, DJD Skin: Warm,Dry and Intact, No rashes, No breakdown Neurological: Normal speech, Normal tone, Cranial nerves 3-12 NL Psych/Mental Status: Anxious Overall, her edema seems to be very minimally improved. Lab/DI/Studies Reviewed: Laboratory Tests 02/29/16 02/29/16 03:40 03:40 WBC 4.9 Hgb 8.8 L Plt Count 39 L* Potassium 4.7 BUN 99 H Creatinine 1.90 H - Assessment (1) Acute on chronic diastolic (congestive) heart failure Acute I50.33 - ACUTE ON CHRONIC DIASTOLIC (CONGESTIVE) HEART FAILURE Comment /Plan: Continue IV diuretic , monitor weight fluid balance. Keep a close eye on daily electrolytes. Continue low-dose beta-kamron, low-dose hydralazine and nitrates. Have had to discontinue a/Arb. (2) Acute respiratory failure with hypoxia Acute J96.01 - ACUTE RESPIRATORY FAILURE WITH HYPOXIA Comment/Plan: Continue O2 nebs and pulmonary toilet. Monitor pulmonary status. Repeat chest x-ray and ABG in the morning (3) Anemia Acute D64.9 - ANEMIA, UNSPECIFIED Qualifiers: Anemia type: unspecified type Qualified Code(s): D64.9 - Anemia, unspecified Comment/Plan: Monitor counts overall stable. (4) Elevated liver enzymes Acute R74.8 - ABNORMAL LEVELS OF OTHER SERUM ENZYMES Comment/Plan: Follow intemittently, will be a reflection of overall well-being. Hold any medications that are hepatotoxic. Continue low dose beta-kamron, low dose hydralazine and nitrates. Stop MARCO ANTONIO/ARB. Hold all non-essential medications. (5) Heart failure Acute I50.9 - HEART FAILURE, UNSPECIFIED Qualifiers: Heart failure type: unspecified heart failure type Heart failure chronicity : unspecified heart failure chronicity Qualified Code(s): I50.9 - Heart failure, unspecified (6) Acute on chronic renal failure Acute N17.9 - ACUTE KIDNEY FAILURE, UNSPECIFIED; N18.9 - CHRONIC KIDNEY DISEASE, UNSPECIFIED Comment/Plan: Avoid any nephrotoxins hold Marco Antonio and ARB. Renal function is improving with improved for flow after diuresis. Continue diuresis, check renal function on a daily basis. Continue however toxic agents , holding her home Marco Antonio and Arb.
[2016-02-29] MEDS: MORPHINE 2 MG/ML INJECTION IV PRN (10:56)
[2016-02-29] MEDS: ARTIFICIAL TEARS OPH SOLN 15 ML OU PRN ×2 (10:59→15:12)
[2016-02-29] MEDS: PEG-ELECTROLYTE 17 GM PACK PO SCH ×2 (12:41→21:08)
[2016-02-29] MEDS: POTASSIUM CHLORIDE 20 MEQ TAB PO SCH (12:42)
[2016-02-29] MEDS: GLARGINE INSULIN (LANTUS) 100 UNITS/ML PEN SQ SCH (21:19)
[2016-03-01] MEDS: MORPHINE 2 MG/ML INJECTION IV PRN (01:24)
[2016-03-01] MEDS: Albuterol/Ipratropium Neb 3 ML NEB NEB SCH ×3 (01:28→13:36)
[2016-03-01] MEDS: ISOSORBIDE DINITRATE 10 MG TAB PO SCH ×2 (06:23→15:19)
[2016-03-01] MEDS: HYDROCODONE 5 MG/ACETAMIN 325 MG TAB PO PRN (06:23)
[2016-03-01] MEDS: SODIUM CHLORIDE 0.9% 3 ML FLUSH FLUSH SCH ×2 (06:23→15:20)
[2016-03-01] MEDS: FUROSEMIDE 40 MG/4 ML VIAL IV SCH ×2 (06:24→15:20)
[2016-03-01] MEDS: REGULAR INSULIN 100 UNITS/ML - 3 ML VIAL SQ SCH ×3 (06:27→17:06)
[2016-03-01 09:02] LABS: BLOOD UREA NITROGEN 88 MG/DL (7-17); CALCIUM 8.1 MG/DL (8.4-10.2); CALCULATED OSMOLALITY 303 MOs/Kg (270-290); CHLORIDE 104 mEq/L (98-107); GLUCOSE 196 MG/DL (70-99); SODIUM LEVEL 141 mEq/L (137-146)
[2016-03-01 09:47] LABS: ALLEN'S TEST PASS; BEb 0.5 (+/- 2); TCO2 27.4 MMOL/L (23-27)
[2016-03-01 09:48] LABS: ABG Draw Site Right Radial; BI-PAP 20/10 cm H2O
[2016-03-01] MEDS ORDERED: NALOXONE 0.4 MG/ML AMPULE ONE (09:52)
[2016-03-01] MEDS ORDERED: NALOXONE 0.4 MG/ML AMPULE IV STA (09:55)
[2016-03-01] MEDS: hydrALAZINE 25 MG TAB PO SCH ×3 (10:11→15:19)
[2016-03-01] MEDS: CARVEDILOL 6.25 MG TAB PO SCH (10:12)
[2016-03-01] MEDS: LEVOTHYROXINE 25 MCG (0.025 MG) TAB PO SCH (10:12)
[2016-03-01] MEDS: PEG-ELECTROLYTE 17 GM PACK PO SCH (10:12)
--- NOTE | 2016-03-01 10:22 | GENMEDPROG ---
Chief Complaint: Respiratory failure, acute kidney injury Subjective Note: Seen urgently at the bedside this morning with nursing staff as well as or surgery therapy due to unresponsiveness. She was found to have O2 saturations of 69% on my arrival. She was quickly placed on non-rebreather, and then BiPAP , after which her O2 saturations increased to 100% and she started to wake up, but only slightly. Notes Reviewed: Yes Events from last night noted and discussed with Clinical Staff Current Medication List: Reviewed DVT Prophylaxis: Yes - Physical Examination Vital Signs and I&O: Last Vital Signs Temp 98.3 F 03/01/16 08:00 Pulse 65 03/01/16 08:00 Resp 13 03/01/16 09:40 BP 176/71 03/01/16 08:00 Pulse Ox 100 03/01/16 09:40 Oxygen Pulse Oxygen Saturation 100 O2 Device Nasal Cannula Oxygen Flow Rate 3 Fraction of Inspired Oxygen ( 40 FIO2) Intake & Output 02/28/16 02/29/16 03/01/16 03/02/16 06:59 06:59 06:59 06:59 Intake Total 900 600 360 Output Total 3000 3850 [id number] [facility] -[id number] -[id number] -[id number] Patient's weight 152.815 kg 152.577 kg 151.953 kg General: Severe distress, Other (Nonresponsive, starting off in space. Intermittently making eye contact.) HEENT: Normal, PERRLA, EOMI, Anicteric Sclera, Other (Tongue is deviated to the left) Lymphatics: Normal Respiratory: Diminished, Rales, Rhonchi Cardiovascular: Regular rate, Normal S1, Normal S2, Murmurs GI: Normal bowel sounds, Soft, Non tender, No hepatospenomegaly, No masses, Obese Extremities/Musculoskeletal: Edema, DJD Skin: Warm,Dry and Intact, No rashes, No breakdown Neurological: Normal speech, Normal tone, Cranial nerves 3-12 NL Psych/Mental Status: Anxious Spontaneously at times moving all extremities, though she seems to be weaker on the right on the left. She follows commands, squeezing weekly in the left hand , but not on the right. Responding to painful stimuli on the left but not on the right. Lab/DI/Studies Reviewed: Laboratory Tests 02/29/16 02/29/16 03/01/16 03:40 03:40 08:31 WBC Hgb 8.8 L Hct Plt Count pH pCO2 pO2 Potassium 5.1 BUN 99 H 88 H Creatinine 1.90 H 1.60 H Estimated GFR (MDRD) 31 L 03/01/16 03/01/16 08:31 09:40 WBC 7.8 Hgb 10.7 L D Hct 34.8 L Plt Count 42 L* pH 7.380 pCO2 44.0 pO2 167.0 H Potassium BUN Creatinine Estimated GFR (MDRD) - Assessment (1) Unresponsive Acute R41.89 - OTH SYMPTOMS AND SIGNS W COGNITIVE FUNCTIONS AND AWARENESS Comment/Plan: Multiple possible etiologies of her reduced mental status this morning, and in fact underlying cause may be a combination of all or most of them. He is receiving narcotic medications, was given a dose of Narcan and did improve her responsiveness slightly after this. She was also severely hypoxemic , which may be due to her mental status primarily. CO2 was not elevated. In any case, she has been placed on BiPAP. Due to the fact that she is not moving her right side very well, and has left-sided tongue deviation, I am concerned about an acute CVA. As such, she is getting a stat CT scan of the head at this time. Also discussed on the phone with the patient's daughter, who understands what is going on. She has asked about transfer to [facility], which I will be happy to initiate after the CT scan of the head. I informed her daughter that if indeed the CT scan of the head does show any intracranial pathology that would explain her is presentation, there is unlikely to be anything that can be done [facility] for [facility]. Will follow up on CT scan of the head, and be back in touch with family. Note the patient is a do not resuscitate. (2) Acute on chronic diastolic (congestive) heart failure Acute I50.33 - ACUTE ON CHRONIC DIASTOLIC (CONGESTIVE) HEART FAILURE Comment /Plan: Continue IV diuretic , monitor weight fluid balance. Keep a close eye on daily electrolytes. Continue low-dose beta-kamron, low-dose hydralazine and nitrates. Have had to discontinue a/Arb. (3) Acute respiratory failure with hypoxia Acute J96.01 - ACUTE RESPIRATORY FAILURE WITH HYPOXIA Comment/Plan: Sudden worsening of her respiratory failure this morning. With severe hypoxia, though I have a feeling this has more to do with her mental status that thing else. Stat ABG was checked, is unremarkable. Daughter does tell me that she normally sleeps at night on BiPAP, though this is not been done here in the hospital. In any case, I do not think this is a respiratory issue primarily. (4) Anemia Acute D64.9 - ANEMIA, UNSPECIFIED Qualifiers: Anemia type: unspecified type Qualified Code(s): D64.9 - Anemia, unspecified Comment/Plan: Monitor counts overall stable. (5) Elevated liver enzymes Acute R74.8 - ABNORMAL LEVELS OF OTHER SERUM ENZYMES Comment/Plan: Follow intemittently, will be a reflection of overall well-being. Hold any medications that are hepatotoxic. Continue low dose beta-kamron, low dose hydralazine and nitrates. Stop MARCO ANTONIO/ARB. Hold all non-essential medications. (6) Heart failure Acute I50.9 - HEART FAILURE, UNSPECIFIED Qualifiers: Heart failure type: unspecified heart failure type Heart failure chronicity : unspecified heart failure chronicity Qualified Code(s): I50.9 - Heart failure, unspecified (7) Acute on chronic renal failure Acute N17.9 - ACUTE KIDNEY FAILURE, UNSPECIFIED; N18.9 - CHRONIC KIDNEY DISEASE, UNSPECIFIED Comment/Plan: Avoid any nephrotoxins hold Marco Antonio and ARB. Renal function is improving with improved for flow after diuresis. Continue diuresis, check renal function on a daily basis. Continue however toxic agents , holding her home Marco Antonio and Arb. - Plan In summary this patient is acutely and critically ill. The patient requires treatment of vital organ failure and measures to prevent further life- threatening deterioration of the above conditions. I personally reviewed and ordered lab testing, as well as imaging. I reviewed old medical records from previous hospitalizations as available, and spent the time mentioned below in critical care of this patient including counseling and coordination of care. Total Time: 120
--- NOTE | 2016-03-01 11:01 | DIRPT ---
ADDENDUM REPORT: 03/01/2016 11:08 ADDENDUM: I discussed these findings by telephone with Dr. Steinberg at approximately 1105 hours on 03/01/2016. 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 Electronically Signed By: Rk Fowler M.D. On: 03/01/2016 11:08 CLINICAL DATA: Code stroke. EXAM: CT HEAD WITHOUT CONTRAST TECHNIQUE: Contiguous axial images were obtained from the base of the skull through the vertex without intravenous contrast. COMPARISON: 12/09/2013 FINDINGS: There is substantial mass effect with edema identified in the posterior fossa. Mass-effect appears to be located in the left cerebellar hemisphere. This generates substantial mass effect, obliterating the fourth ventricle. Herniation of of cerebellum up through the incisura generates substantial mass effect in the quadrigeminal and ambient cisterns. Small areas of hyper attenuation within the abnormal cerebellum could represent foci of age-indeterminate hemorrhage. As before, there is encephalomalacia in the left parieto-occipital region with ex vacuo dilatation of the left lateral ventricle. Diffuse loss of parenchymal volume is consistent with atrophy. Patchy low attenuation in the deep hemispheric and periventricular white matter is nonspecific, but likely reflects chronic microvascular ischemic demyelination. Circumferential mucosal thickening is seen in the left maxillary sinus. The remaining visualized paranasal sinuses are clear. Fluid in the left mastoid air cells has progressed since the prior study. 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 MRI brain with contrast material recommended for further evaluation. Chronic left maxillary sinus disease with associated left mastoid effusion. Electronically Signed: By: Rk Fowler M.D. On: 03/01/2016 10:59
[2016-03-01] MEDS: POTASSIUM CHLORIDE 20 MEQ TAB PO SCH (11:47)
[2016-03-01] MEDS ORDERED: METHYLPREDNISOLONE 125 MG/2 ML VIAL IV SCH (14:00)
--- NOTE | 2016-03-01 16:30 | PCM.DCS92 ---
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 Discussed the findings in detail with the patient's niece as well as her daughter over the phone multiple times today. They have elected for hospice, she was evaluated by hospice services and we transferred to hospice house later this evening. (2) Acute on chronic diastolic (congestive) heart failure Acute I50.33 - ACUTE ON CHRONIC DIASTOLIC (CONGESTIVE) HEART FAILURE Present on Admission: Yes Comment: Continue IV diuretic , monitor weight fluid balance. Keep a close eye on daily electrolytes. Continue low-dose beta-kamron, low-dose hydralazine and nitrates. Have had to discontinue a/Arb. (3) Acute respiratory failure with hypoxia Acute J96.01 - ACUTE RESPIRATORY FAILURE WITH HYPOXIA Comment: Sudden worsening of her respiratory failure this morning. With severe hypoxia, though I have a feeling this has more to do with her mental status that thing else. Stat ABG was checked, is unremarkable. Daughter does tell me that she normally sleeps at night on BiPAP, though this is not been done here in the hospital. In any case, I do not think this is a respiratory issue primarily. (4) Anemia Acute D64.9 - ANEMIA, UNSPECIFIED unspecified type D64.9 - Anemia, unspecified Comment: Monitor counts overall stable. (5) Elevated liver enzymes Acute R74.8 - ABNORMAL LEVELS OF OTHER SERUM ENZYMES Present on Admission: Yes Comment: Follow intemittently, will be a reflection of overall well-being. Hold any medications that are hepatotoxic. Continue low dose beta-kamron, low dose hydralazine and nitrates. Stop MARCO ANTONIO/ARB. Hold all non-essential medications. (6) Heart failure Acute I50.9 - HEART FAILURE, UNSPECIFIED unspecified heart failure type unspecified heart failure chronicity I50.9 - Heart failure, unspecified (7) Acute on chronic renal failure Acute N17.9 - ACUTE KIDNEY FAILURE, UNSPECIFIED; N18.9 - CHRONIC KIDNEY DISEASE, UNSPECIFIED Present on Admission: Yes Comment: Avoid any nephrotoxins hold Marco Antonio and ARB. Renal function is improving with improved for flow after diuresis. Continue diuresis, check renal function on a daily basis. Continue however toxic agents, holding her home Marco Antonio and Arb. Discharge Condition: Stable Physician Follow up/Referrals: Makeda Lira MD [Primary Care Provider] - One Week O2 Device: BiPAP - DC Summary Notes HPI/Notes: This is a 80-year-old chronically ill female with congestive heart failure, renal failure as well of bad COPD was admitted to the hospital with unresponsiveness and fluid overload with significant hypoxia. She was treated and improving gradually, when this morning she was found to be unresponsive with O2 sats in the 60s. She was treated aggressively, but after failure to improve stat head CT was obtained which revealed left cerebellar mass with significant associated edema. Patient has remained stable today, but after several discussions with defer family members, they have elected for comfort care only. Patient will be transferred to inpatient hospice this evening. Hospital Course Note:: Discharge summary on patient named GLADYS JAMES admitted to [facility] on 02/27/16 by Inga Nam MD. Date of discharge is []. Total Time: 35 - Physical Exam Vital Signs: Last Vital Signs Temp 98.1 F 03/01/16 11:08 Pulse 72 03/01/16 15:41 Resp 20 03/01/16 15:41 BP 172/68 03/01/16 15:41 Pulse Ox 96 03/01/16 15:41 Oxygen Pulse Oxygen Saturation 96 O2 Device BiPAP Oxygen Flow Rate 3 Fraction of Inspired Oxygen ( 50 FIO2) Constitutional: Somnolent Oriented to: Not Oriented - HEENT Head: Normal, Other (face with scabs on it, dry scaley patches) Eye: Normal (PERRL: EOMI) Oropharynx: Membranes Dry Tympanic Membrane: Dull ENT EAC: Cerumen Nose: negative: Bleeding, Congestion, Discharge, Deformity - Respiratory/Cardiovascular Respiratory: Diminished, Rales, Rhonchi - GI Auscultation: Normal. negative: Bruit Palpation: Normal (soft, nondistended, no mass, obese), Fluid Wave. negative: Enlarged liver, Enlarged spleen Tenderness: Non tender. negative: Guarding, Rebound, Rigidity Erickson's Sign: Negative Rectal Exam: Deferred - Musculoskeletal Back: Normal Extremities: Edema (3+ bilateral to knees), Pedal Pulse (diminished), Radial Pulse (normal). negative: Clubbing, Cyanosis - Integumentary Lymphatics: Normal - Neurologic Memory Impaired: Short-term Cerebellar: Normal Mood Description: Normal Thought: Coherent Perception: Normal
[2016-03-01 17:07] VITALS: BP 166/22; TEMP 99.2
[2016-03-01 17:57] VITALS: PULSE 71
== END 2016-03-01 18:13 | disposition hospice, inpatient (51) | DRG 291 ==
LOC: ED 01:55 → PCU 05:26
PROVIDERS: ADMIT Family Medicine; ATTEND Internal Medicine
PROC: 039B3ZZ Drainage of Right Radial Artery, Percutaneous Approach (ICD-10-PCS; principal; 2016-02-27)
PROC: 5A09357 Assistance with Respiratory Ventilation, Less than 24 Consecutive Hours, Continuous Positive Airway Pressure (ICD-10-PCS; 2016-03-01)
DX: I50.33 Acute on chronic diastolic (congestive) heart failure (principal); J96.01 Acute respiratory failure with hypoxia; G93.5 Compression of brain; G93.6 Cerebral edema; N17.9 Acute kidney failure, unspecified; D64.9 Anemia, unspecified; E11.9 Type 2 diabetes mellitus without complications; R74.8 Abnormal levels of other serum enzymes; I12.9 Hypertensive chronic kidney disease with stage 1 through stage 4 chronic kidney disease, or unspecified chronic kidney disease; N18.9 Chronic kidney disease, unspecified; J44.9 Chronic obstructive pulmonary disease, unspecified; J45.909 Unspecified asthma, uncomplicated; M19.90 Unspecified osteoarthritis, unspecified site; M10.9 Gout, unspecified; E03.9 Hypothyroidism, unspecified; Z86.73 Personal history of transient ischemic attack (TIA), and cerebral infarction without residual deficits; F32.9 Major depressive disorder, single episode, unspecified; Z88.0 Allergy status to penicillin; Z88.5 Allergy status to narcotic agent; Z88.2 Allergy status to sulfonamides; Z88.8 Allergy status to other drugs, medicaments and biological substances; Z79.899 Other long term (current) drug therapy; Z79.4 Long term (current) use of insulin; E66.9 Obesity, unspecified; G47.33 Obstructive sleep apnea (adult) (pediatric); D69.6 Thrombocytopenia, unspecified; F03.90 Unspecified dementia, unspecified severity, without behavioral disturbance, psychotic disturbance, mood disturbance, and anxiety; Z51.5 Encounter for palliative care; Z66 Do not resuscitate
CPT/HCPCS: 36415; 36600; 70450; 71010; 80048; 80053; 82550; 82803; 82962; 83605; 83735; 83880; 84484; 85025; 85027; 85610; 85730; 87040; 87641; 93005; 94640; 94660; 96365; 96372; 96375; 97161; 99284; J1940; J2270; J2310; J2405; J2930; J3490; J7620